=== PATIENT | male | born 1990 | race Caucasian/White ===

== ENCOUNTER 2021-03-27 12:39 | Emergency (ER) | payer OTHER ==
[~2021-03-27] VITALS: Ht 180.3 cm; Wt 117.9 kg
[2021-03-27] MEDS ORDERED: XANAX 0.5 MG0.5 M1 PO (12:54)
[2021-03-27] MEDS ORDERED: ADDERALL 20 MG20 MG PO (12:54)
[2021-03-27] MEDS ORDERED: ZOLOFT100 MG PO (12:54)
[2021-03-27] MEDS ORDERED: HYDROCODON-ACE1 EAC7 PO (14:47)
[2021-03-27] MEDS ORDERED: FLEXERIL PO (14:47)
[2021-03-27] MEDS ORDERED: IBUPROFEN 800800 M1 PO (14:47)
[2021-03-27 14:56] VITALS: BP 144/75
== END 2021-03-27 14:57 | disposition home or self-care (01) ==
LOC: M.ERS 12:39
DX: M54.5 Low back pain (principal); M79.18 Myalgia, other site; F41.9 Anxiety disorder, unspecified; F32.9 Major depressive disorder, single episode, unspecified; Z90.89 Acquired absence of other organs; Z79.899 Other long term (current) drug therapy